=== PATIENT | male | born 1960 | race Caucasian/White ===

== ENCOUNTER 2021-08-07 09:38 | Observation (INO) | payer BC ==
[~2021-08-07] VITALS: Ht 180.3 cm; Wt 88.6 kg
[2021-08-07 11:04] LABS: BASOPHILS % (AUTO) 0.5 % (0-1); EOSINOPHILS # (AUTO) 0.2 X10'3 (0-0.9); EOSINOPHILS % (AUTO) 3.2 % (0-6); HEMATOCRIT 45.7 % (42.0-52.0); HEMOGLOBIN 15.6 g/dl (14.0-17.9); LYMPHOCYTES # (AUTO) 1.4 X10'3 (1.1-4.8); LYMPHOCYTES % (AUTO) 22.1 % (21-51); MEAN CORPUSCULAR HEMOGLOBIN 30.9 PG (27.0-31.0); MEAN CORPUSCULAR HGB CONC 34.1 g/dL (33.0-36.5); MEAN CORPUSCULAR VOLUME 90.6 FL (78-98); MEAN PLATELET VOLUME 8.4 FL (7.4-10.4); MONOCYTES # (AUTO) 0.5 X10'3 (0-0.9); MONOCYTES % (AUTO) 7.1 % (2-12); NEUTROPHILS # (AUTO) 4.4 X10'3 (1.8-7.7); NEUTROPHILS % (AUTO) 67.1 % (42-75); PLATELET COUNT 280 X10'3 (140-440); RED BLOOD COUNT 5.05 X10'6 (4.70-6.10); RED CELL DISTRIBUTION WIDTH 13.3 % (11.5-14.5); WHITE BLOOD COUNT 6.5 X10'3 (4.5-11.0)
[2021-08-07 11:16] LABS: ALANINE AMINOTRANSFERASE 31 U/L (12-78); ALBUMIN 4.5 G/DL (3.4-5.0); ALBUMIN/GLOBULIN RATIO 1.5 (1.1-1.5); ALKALINE PHOSPHATASE 54 IU/L (46-116); ANION GAP 11 (8-16); ASPARTATE AMINO TRANSFERASE 14 U/L (10-37); BILIRUBIN,TOTAL 0.6 MG/DL (0.1-1.0); BLOOD UREA NITROGEN 18 MG/DL (7-18); BUN/CREATININE RATIO 23.4 (5.4-32.0); CHLORIDE 101 MMOL/L (99-107); CREATININE 0.77 MG/DL (0.60-1.10); GLUCOSE 106 MG/DL (70-104); SODIUM 137 MMOL/L (135-145); TOTAL PROTEIN 7.6 G/DL (6.4-8.2); eGFR > 90 ML/MIN
[2021-08-07] MEDS ORDERED: aminophylline 250mg/10ml inj. IV PRN (11:45)
[2021-08-07] MEDS ORDERED: regadenoson 0.4mg/5ml syringe IV PRN (11:45)
[2021-08-07] MEDS ORDERED: metoclopramide 5 mg/ml inj IV PRN (11:45)
[2021-08-07] MEDS ORDERED: morphine 2 MG/ML inj. syringe IV PRN ×2 (11:45)
[2021-08-07] MEDS ORDERED: ondansetron 4mg rapidly disintigrating tab PO PRN (11:45)
[2021-08-07] MEDS ORDERED: acetaminophen 650mg rectal suppository RC PRN (11:45)
[2021-08-07] MEDS ORDERED: mag hydrox/Alum hydrox/simeth 30ml oral suspension PO PRN (11:45)
[2021-08-07] MEDS ORDERED: acetaminophen 325mg tablet PO PRN ×2 (11:45)
[2021-08-07] MEDS ORDERED: HYDROcodone/acetaminophen 10/325mg tab PO PRN (11:45)
[2021-08-07] MEDS ORDERED: magnesium 2GM in 50ml NS 50 ML IV PRN (11:45)
[2021-08-07] MEDS ORDERED: magnesium Cl slow-release 64mg tablet PO PRN (11:45)
[2021-08-07] MEDS ORDERED: diphenhydrAMINE 25mg capsule PO PRN (11:45)
[2021-08-07] MEDS ORDERED: bisacodyl 10mg suppository rectal RC PRN (11:45)
[2021-08-07] MEDS ORDERED: diphenhydrAMINE 50 mg/ml inj IV PRN (11:45)
[2021-08-07] MEDS ORDERED: nitroGLYCERIN 0.4mg SUBLingual tab SL PRN ×2 (11:45)
[2021-08-07] MEDS ORDERED: POTASSIUM BICARB 20meq eff tab 20 MEQ TABLET.EFF PO PRN ×2 (11:45)
[2021-08-07] MEDS ORDERED: magnesium 4gm in 100ml NS 100 ML IV PRN (11:45)
[2021-08-07] MEDS ORDERED: PERFLUTREN PROTEIN-A MICROSPHR (Optison) 0.22 MG/ML 3ML VIAL IV ONE (11:45)
[2021-08-07] MEDS ORDERED: ondansetron/PF 4mg/2ml inj IV PRN (11:45)
[2021-08-07] MEDS ORDERED: potassium CL 10mEq/100ml bag 100 ML IV PRN (11:45)
[2021-08-07] MEDS ORDERED: magnesium hydroxide 30ml (MOM) UD suspension PO PRN (11:45)
[2021-08-07] MEDS ORDERED: HYDROcodone/acetaminophen 5mg/325mg tablet PO PRN (11:45)
[2021-08-07] MEDS ORDERED: metoprolol tartrate 1mg/ml inj IV PRN (11:45)
[2021-08-07 12:17] LABS: HEMOGLOBIN A1C 5.6 % (4.5-6.2)
[2021-08-07 12:23] LABS: MAGNESIUM 2.4 MG/DL (1.5-2.4); PHOSPHORUS 2.8 MG/DL (2.3-4.5)
[2021-08-07] MEDS ORDERED: ALBU8.5H17 INH (13:33)
[2021-08-07] MEDS: normal saline 1000ml 1,000 ML IV SCH ×2 (14:40→19:55)
[2021-08-07] MEDS ORDERED: albuterol 2.5 MG/3 ML nebule NEB PRN (16:40)
--- NOTE | 2021-08-07 17:38 | NUR ---
Patient in room PCU 3029U. I have received report from DINA FROM ER and had the opportunity to ask questions and assume patient care.
--- NOTE | 2021-08-07 18:32 | NUR ---
Problems reprioritized. Patient report given, questions answered & plan of care reviewed with TOMY TAFOYA.
[2021-08-07 18:40] VITALS: BP 143/93
[2021-08-07] MEDS: K and/or MAG REPLACEMENT MC SCH (19:57)
[2021-08-07] MEDS: docusate sod 100mg capsule PO SCH (20:00)
[2021-08-07] MEDS ORDERED: temazepam 15mg capsule PO PRN (21:00)
[2021-08-07 22:00] VITALS: BP 128/83
[2021-08-08] VITALS (10 sets, daily range): BP systolic 112–140; BP diastolic 77–92
[2021-08-08 06:09] LABS: BASOPHILS % (AUTO) 0.7 % (0-1); EOSINOPHILS % (AUTO) 4.5 % (0-6); HEMATOCRIT 44.8 % (42.0-52.0); HEMOGLOBIN 15.3 g/dl (14.0-17.9); LYMPHOCYTES # (AUTO) 1.6 X10'3 (1.1-4.8); LYMPHOCYTES % (AUTO) 27.1 % (21-51); MEAN CORPUSCULAR HGB CONC 34.1 g/dL (33.0-36.5); MEAN PLATELET VOLUME 8.3 FL (7.4-10.4); MONOCYTES # (AUTO) 0.4 X10'3 (0-0.9); MONOCYTES % (AUTO) 7.3 % (2-12); NEUTROPHILS # (AUTO) 3.6 X10'3 (1.8-7.7); NEUTROPHILS % (AUTO) 60.4 % (42-75); PLATELET COUNT 263 X10'3 (140-440); RED BLOOD COUNT 4.93 X10'6 (4.70-6.10); RED CELL DISTRIBUTION WIDTH 13.4 % (11.5-14.5)
[2021-08-08 06:10] LABS: EOSINOPHILS # (AUTO) 0.3 X10'3 (0-0.9)
[2021-08-08 06:20] LABS: ALANINE AMINOTRANSFERASE 27 U/L (12-78); ALBUMIN/GLOBULIN RATIO 1.4 (1.1-1.5); ALKALINE PHOSPHATASE 47 IU/L (46-116); ANION GAP 8 (8-16); ASPARTATE AMINO TRANSFERASE 10 U/L (10-37); BILIRUBIN,TOTAL 0.8 MG/DL (0.1-1.0); BLOOD UREA NITROGEN 16 MG/DL (7-18); BUN/CREATININE RATIO 21.1 (5.4-32.0); CALCIUM 8.8 MG/DL (8.5-10.1); CHLORIDE 106 MMOL/L (99-107); CHOL/HDL RATIO 5.2 (0.00-4.99); CHOLESTEROL 162 MG/DL (0-200); CREATININE 0.76 MG/DL (0.60-1.10); GLUCOSE 105 MG/DL (70-104); HDL CHOLESTEROL 31 MG/DL (35-60); LDL CHOLESTEROL 115 MG/DL (50-100); MAGNESIUM 2.2 MG/DL (1.5-2.4); POTASSIUM 4.1 MMOL/L (3.5-5.1); SODIUM 140 MMOL/L (135-145); TOTAL CARBON DIOXIDE 26.2 MMOL/L (24-32); TOTAL PROTEIN 6.8 G/DL (6.4-8.2); TRIGLYCERIDES 84 MG/DL (20-135); eGFR > 90 ML/MIN
--- NOTE | 2021-08-08 06:22 | NUR ---
Problems reprioritized. Patient report given, questions answered & plan of care reviewed with Jessie. Addendum: 08/08/21 at 0623 by Fredrick Hawk RN Amended: Links added.
--- NOTE | 2021-08-08 06:59 | NUR ---
Patient in room PCU [id number]. I have received report from TOMY TAFOYA and had the opportunity to ask questions and assume patient care.
[2021-08-08] MEDS: normal saline 1000ml 1,000 ML IV SCH (07:45)
[2021-08-08] MEDS: K and/or MAG REPLACEMENT MC SCH (08:00)
[2021-08-08] MEDS ORDERED: aspirin 81mg, enteric-coated 1 TAB TABLET.DR PO SCH (08:00)
[2021-08-08] MEDS: docusate sod 100mg capsule PO SCH (08:00)
[2021-08-08] MEDS ORDERED: aminophylline 500mg/20ml vial ONE (08:45)
--- NOTE | 2021-08-08 16:14 | NUR ---
PATIENT STABLE AND APPROPRIATE FOR DISCHARGE, IV REMOVED, TELE REMOVED, EDUCATION GIVEN, ALL BELONGINGS SENT WITH PATIENT, PATIENT TAKEN TO LOBBY BY WHEELCHAIR TO AN AWAITING CAR WHERE WILL TAKE PATIENT HOME
== END 2021-08-08 16:14 | disposition home or self-care (01) ==
LOC: ER 09:39 → ED HOLD 11:54 → PCU 3S 17:50
PROVIDERS: ADMIT Family Medicine; ATTEND Family Medicine
DX: I20.0 Unstable angina (principal); R55 Syncope and collapse; I10 Essential (primary) hypertension; E78.5 Hyperlipidemia, unspecified; E11.9 Type 2 diabetes mellitus without complications; K21.9 Gastro-esophageal reflux disease without esophagitis; G47.30 Sleep apnea, unspecified; J45.909 Unspecified asthma, uncomplicated; Z88.0 Allergy status to penicillin; Z79.899 Other long term (current) drug therapy; Z82.49 Family history of ischemic heart disease and other diseases of the circulatory system
CPT/HCPCS: 36415; 70450; 70553; 71045; 78452; 80053; 80061; 83036; 83735; 83880; 84100; 84443; 84484; 85025; 87081; 93005; 93017; 93306; 93880; 96360; 96361; 99285; A9500; G0378; J2785; J7030; J0280